=== PATIENT | female | born 1995 | race African-American/Black ===

== ENCOUNTER 2019-11-30 13:56 | Emergency (ER) | payer SELFPAY ==
[~2019-11-30] VITALS: Ht 163.8 cm; Wt 74.1 kg
[~2019-11-30 13:56] MED LIST: NOCURR
[2019-11-30 13:57] VITALS: BP 131/70
== END 2019-11-30 14:02 | disposition left against medical advice (07) ==
LOC: EMS 13:58
DX: R06.02 Shortness of breath (principal); Z53.21 Procedure and treatment not carried out due to patient leaving prior to being seen by health care provider